=== PATIENT | male | born 1995 | race Asian ===

== ENCOUNTER 2019-01-20 20:06 | Emergency (ER) | payer OTHER ==
--- NOTE | 2019-01-20 21:45 | ED ---
Lower Extremity - HPI Summary HPI Summary: 23 year old male presents with hurt his right leg after falling off [employer]. He admits to increase swelling to calf muscle. No numbness tingling. No ankle pain. No knee pain. Has no medical conditions. not on blood thinners. - History of Current Complaint Chief Complaint: EDExtremityLower Stated Complaint: RT LEG SWOLLEN PER PT Time Seen by Provider: 01/20/19 20:40 Pain Intensity: 8 - Allergies/Home Medications Allergies/Adverse Reactions: Allergies Allergy/AdvReac Type Severity Reaction Status Date / Time No Known Allergies Allergy Verified 01/20/19 20:10 Home Medications: Home Medications NK [No Home Medications Reported] 01/20/19 [History Confirmed 01/20/19] PMH/Surg Hx/FS Hx/Imm Hx Endocrine/Hematology History: Denies: Hx Anticoagulant Therapy Respiratory History: Denies: Hx Asthma Infectious Disease History: No Infectious Disease History: Denies: Traveled Outside the [place] in Last 30 Days - Family History Known Family History: Positive: Non-Contributory - Social History Alcohol Use: Occasionally Substance Use Type: Reports: None Smoking Status (MU): Heavy Every Day Tobacco Smoker Review of Systems Negative: Fever Negative: Chest Pain Negative: Shortness Of Breath Positive: Myalgia - right leg pain All Other Systems Reviewed And Are Negative: Yes Physical Exam Triage Information Reviewed: Yes Vital Signs On Initial Exam: Initial Vitals Temp Pulse Resp BP Pulse Ox 98.6 F 114 18 146/93 99 01/20/19 20:10 01/20/19 20:10 01/20/19 20:10 01/20/19 20:10 01/20/19 20:10 Vital Signs Reviewed: Yes Appearance: Positive: Well-Appearing Skin: Positive: Warm, Dry, Other - abrasions to right lower leg Head/Face: Positive: Normal Head/Face Inspection Eyes: Positive: Normal, Conjunctiva Clear ENT: Positive: Pharynx normal Respiratory/Lung Sounds: Positive: Clear to Auscultation, Breath Sounds Present Cardiovascular: Positive: Normal, RRR Musculoskeletal: Positive: Strength/ROM Intact - right leg, Edema Right - right leg, Other - good pulses, tenderness right calf Neurological: Positive: Normal Psychiatric: Positive: Normal Diagnostics - Vital Signs Vital Signs Temp Pulse Resp BP Pulse Ox 01/20/19 20:10 98.6 F 114 18 146/93 99 - Laboratory Lab Statement: Any lab studies that have been ordered have been reviewed, and results considered in the medical decision making process. - Radiology tibia Radiology Interpretation Completed By: ED Physician - no fracture Summary of Radiographic Findings: no fracture - Ultrasound No standard instances Ultrasound Interpretation Completed By: Radiologist Summary of Ultrasound Findings: IMPRESSION: No evidence of deep vein thrombosis in the right lower extremity. Lower Extremity Course/Dx - Course Course Of Treatment: 23 year old male presents with hurt his right leg after falling off [employer]. He admits to increase swelling to calf muscle. No numbness tingling. No ankle pain. No knee pain. Has no medical conditions. not on blood thinners. On exam tenderness of right calf. Neurovascular intact. X- ray will be read as no fracture. Ultrasound no DVT. We'll treat as contusion. Told ice and elevate. Patient understands agrees with plan. - Diagnoses Differential Diagnosis/HQI/PQRI: Positive: Fracture (Closed), Sprain, Strain Provider Diagnoses: Right calf pain Discharge ED - Sign-Out/Discharge Documenting (check all that apply): Patient Departure Patient Received Moderate/Deep Sedation with Procedure: No - Discharge Plan Condition: Good Disposition: HOME Patient Education Materials: Contusion in Adults (ED) Referrals: [facility] [Outside] Additional Instructions: Take Tylenol or ibuprofen every 6 hours as needed for pain Apply ice, rest, elevate Follow up with primary care physician within 5 days Return to ED if develop any new or worsening symptoms - Billing Disposition and Condition Condition: GOOD Disposition: Home - Attestation Statements Provider Attestation: I was available for consultation for this patient. I did not evaluate the patient or participate in any medical decision making or disposition decisions unless I am specifically named in the chart as having consulted on the patient. If I have consulted on the patient, please see my own ED note on the patient encounter. Izabel Boland MD
[2019-01-20 22:26] VITALS: BP 139/93
== END 2019-01-20 22:25 | disposition home or self-care (01) ==
LOC: ED 20:06
DX: M79.661 Pain in right lower leg (principal); V86.59XA Driver of other special all-terrain or other off-road motor vehicle injured in nontraffic accident, initial encounter; Y93.9 Activity, unspecified; F17.210 Nicotine dependence, cigarettes, uncomplicated
CPT/HCPCS: 99282